=== PATIENT | male | born 1955 | race Caucasian/White ===

== ENCOUNTER → 2019-09-08 | Outpatient (CLI) | payer MEDICARE ==
--- NOTE | 2019-09-08 13:44 | KCIC ---
CERVICAL SPINE WO CONTRAST DATE: 09/08/2019 12:30 PM INDICATION: Cervical stenosis, remote neck injury TECHNIQUE: Multiplanar multisequence magnetic resonance imaging of the cervical spine was performed without administration of intravenous contrast using the standard cervical spine protocol. COMPARISON: None. FINDINGS: Reversal of the cervical lordosis. No acute fracture. Moderate multilevel degenerative disc desiccation and disc height loss. No marrow replacing process to suggest malignancy. The spinal cord is normal in signal intensity. On the limited views of the cranial cavity and brain, the cerebellum and sari have normal morphology and signal characteristics. No Chiari malformation. No soft tissue abnormality. Normal signal voids are present in the vertebral arteries. C2-3: No significant spinal canal stenosis or neural foraminal narrowing. C3-4: Uncovertebral hypertrophy. Mild to moderate right and mild left neural foraminal narrowing. No significant spinal canal stenosis. C4-5: Disc osteophyte complex. Uncovertebral hypertrophy. Ligamentum flavum thickening. Mild bilateral neural foraminal narrowing. Moderate spinal canal stenosis. C5-6: Disc osteophyte complex. Uncovertebral hypertrophy. Ligamentum flavum thickening. Moderate bilateral neural foraminal narrowing. Moderate to severe spinal canal stenosis. C6-7: Disc osteophyte complex. Uncovertebral hypertrophy. Ligamentum flavum thickening. Severe bilateral neural foraminal narrowing. Moderate to severe spinal canal stenosis. C7-T1: No significant spinal canal stenosis or neural foraminal narrowing. IMPRESSION: Advanced cervical spondylosis, worst at C5-6 and C6-7 with moderate to severe spinal canal stenosis. Electronically signed by: Mick Sue MD (09/08/2019 1:40 PM) [id number]
== END | disposition home or self-care (01) ==
LOC: KCIC MRI 11:40
PROVIDERS: ATTEND Neurological Surgery
DX: M48.02 Spinal stenosis, cervical region (principal); M47.812 Spondylosis without myelopathy or radiculopathy, cervical region; M25.78 Osteophyte, vertebrae; M89.38 Hypertrophy of bone, other site; M40.292 Other kyphosis, cervical region
CPT/HCPCS: 72141